=== PATIENT | female | born 1995 | race Caucasian/White ===

== ENCOUNTER 2018-05-26 20:00 | Inpatient (IN) | payer OTHER | END 2018-06-01 12:15 | disposition still patient (30) | LOC: ADULT MH 20:00 | DX: F33.2 Major depressive disorder, recurrent severe without psychotic features (principal) ==

== ENCOUNTER 2018-05-26 21:03 | Emergency (ER) | payer OTHER ==
[~2018-05-26] VITALS: Ht 160 cm; Wt 87.9 kg
[~2018-05-26 21:03] MED LIST: BAC10T PO; BIRTH CONTROL PO; BISA-77 PO; DULO-31 PO; OMEP20TA5 PO; TOP25T PO
--- NOTE | 2018-05-26 21:20 | NUR ---
CONTACTED TELEPSYCH TO INITIATE CONSULT
[2018-05-26 21:31] LABS: URINE HCG NEGATIVE (NEG)
[2018-05-26 21:42] LABS: URINE AMPHETAMINE SCREEN NEGATIVE (Neg); URINE BARBITUATE SCREEN NEGATIVE (Neg); URINE BENZODIAZEPINES SCREEN NEGATIVE (Neg); URINE CANNABINOID SCREEN NEGATIVE (Neg); URINE COCAINE SCREEN NEGATIVE (Neg); URINE METHADONE SCREEN NEGATIVE (Neg); URINE OPIATE SCREEN NEGATIVE (Neg); URINE PHENCYCLIDINE SCREEN NEGATIVE (Neg)
[2018-05-26 21:44] LABS: ALANINE AMINOTRANSFERASE 15 U/L (12-78); ALBUMIN 3.5 G/DL (3.4-5.0); ALBUMIN/GLOBULIN RATIO 0.8 (1.1-1.5); ALKALINE PHOSPHATASE 97 IU/L (46-116); ANION GAP 12 (8-16); ASPARTATE AMINO TRANSFERASE 15 U/L (10-37); BILIRUBIN,TOTAL 0.3 MG/DL (0.1-1.0); BLOOD UREA NITROGEN 18 MG/DL (7-18); BUN/CREATININE RATIO 19.4 (6.6-38.0); CALCIUM 8.7 MG/DL (8.5-10.1); CHLORIDE 104 MMOL/L (99-107); CREATININE 0.93 MG/DL (0.40-0.90); GLUCOSE 98 MG/DL (70-104); SODIUM 138 MMOL/L (135-145); TOTAL CARBON DIOXIDE 22.5 MMOL/L (24-32); TOTAL PROTEIN 7.7 G/DL (6.4-8.2); eGFR 75 ML/MIN
[2018-05-26 21:52] LABS: POTASSIUM 3.7 MMOL/L (3.5-5.1)
[2018-05-26 21:53] LABS: ETHANOL < 0.010 GM/DL (0.0-0.010)
--- NOTE | 2018-05-26 22:00 | NUR ---
Pt affirms increased S/I with plan to "OD on meds or drive fast into something." Flat affect and mood. Pt reports doubling of SSRI in past 2 weeks and miscarrage ~ 5 days ago. Pt stated, "I was having a hard time coping so I came here from [place]." Pt reports a hx of self mutilation (cutting), but nothing in the past 6 yrs and also a previous OD attempt. Mother & friend bedside.
[2018-05-26 22:22] LABS: BASOPHILS % (AUTO) 0.3 % (0-1); EOSINOPHILS # (AUTO) 0.1 X10'3 (0-0.9); HEMATOCRIT 40.5 % (35.0-45.0); LYMPHOCYTES % (AUTO) 28.4 % (21-51); MEAN CORPUSCULAR HEMOGLOBIN 27.7 PG (27.0-31.0); MEAN CORPUSCULAR HGB CONC 34.5 % (33.0-36.5); MEAN CORPUSCULAR VOLUME 80.2 FL (78-98); MEAN PLATELET VOLUME 9.3 FL (7.4-10.4); MONOCYTES # (AUTO) 0.8 X10'3 (0-0.9); MONOCYTES % (AUTO) 7.6 % (2-12); NEUTROPHILS # (AUTO) 6.5 X10'3 (1.8-7.7); NEUTROPHILS % (AUTO) 62.7 % (42-75); PLATELET COUNT 271 X10'3 (140-440); RED BLOOD COUNT 5.05 X10'6 (4.20-5.60); RED CELL DISTRIBUTION WIDTH 14.1 % (11.5-14.5); WHITE BLOOD COUNT 10.4 X10'3 (4.5-11.0)
[2018-05-26] MEDS ORDERED: LORazepam 0.5 MG tablet PO PRN (22:45)
[2018-05-26 23:16] VITALS: BP 126/65
--- NOTE | 2018-05-27 00:37 | NUR ---
Pt status provided [place], [facility] [place] preparation of psychosocial assessment.
--- NOTE | 2018-05-27 01:04 | NUR ---
[facility] Psychiatrist called back w/ status: recommending PHF placementl w/ no change in psychotropics
--- NOTE | 2018-05-27 01:10 | NUR ---
Spoke with [facility] CROusmane Damon; bed has been held for pt, pending telepsych psychosocial assessment results, which involve PHF placement and medical clearance. Updated EDMD Ari with details.
--- NOTE | 2018-05-27 01:25 | NUR ---
Client to be admitted to [facility] [address] for [address] Tejeda.
[2018-05-27] MEDS ORDERED: multivitamins, therapeutics tablet PO ONE (15:25)
[2018-05-27] MEDS ORDERED: hydrOXYzine 25 MG tablet PO PRN (15:25)
[2018-05-27] MEDS ORDERED: duloxetine 30mg CAPSULE.DR PO ONE (15:25)
[2018-05-27] MEDS ORDERED: traZODone 50mg tablet PO SCH (20:00)
[2018-05-27] MEDS ORDERED: Melatonin 3mg tablet PO SCH (21:00)
[2018-05-28] MEDS ORDERED: duloxetine 30mg CAPSULE.DR PO SCH ×2 (08:00→21:00)
[2018-05-28] MEDS ORDERED: multivitamins, therapeutics tablet PO SCH (08:00)
== END 2018-05-27 02:56 ==
LOC: EEVIPCON 21:03 → ER 21:03
DX: R45.851 Suicidal ideations (principal); G47.00 Insomnia, unspecified; R10.9 Unspecified abdominal pain; F32.9 Major depressive disorder, single episode, unspecified; F41.9 Anxiety disorder, unspecified; Z88.1 Allergy status to other antibiotic agents; Z88.8 Allergy status to other drugs, medicaments and biological substances; Z79.899 Other long term (current) drug therapy
CPT/HCPCS: 36415; 80053; 80305; 80320; 81025; 84443; 85025; 99285

== ENCOUNTER 2020-10-29 15:15 | Emergency (ER) | payer OTHER ==
[~2020-10-29] VITALS: Ht 160 cm; Wt 118.2 kg
[~2020-10-29 15:15] MED LIST changes: -BAC10T PO; -BIRTH CONTROL PO; -BISA-77 PO; -DULO-31 PO; +DULO30CA52 PO; +HYDR-3686 PO; -OMEP20TA5 PO; -TOP25T PO; +TRAZ-256 PO
[2020-10-29 16:34] VITALS: BP 183/80
--- NOTE | 2020-10-29 18:05 | NUR ---
Patient seen, assessed and discharge by provider, vi WOMACK
== END 2020-10-29 18:10 | disposition home or self-care (01) ==
LOC: ER 15:15
DX: S06.0X0A Concussion without loss of consciousness, initial encounter (principal); M25.532 Pain in left wrist; Z87.440 Personal history of urinary (tract) infections; Z98.890 Other specified postprocedural states; Z88.1 Allergy status to other antibiotic agents; Z88.8 Allergy status to other drugs, medicaments and biological substances; Z79.899 Other long term (current) drug therapy; W01.0XXA Fall on same level from slipping, tripping and stumbling without subsequent striking against object, initial encounter; Y93.89 Activity, other specified; Y92.89 Other specified places as the place of occurrence of the external cause; Y99.8 Other external cause status
CPT/HCPCS: 73110; 99283

== ENCOUNTER 2021-09-19 19:01 | Emergency (ER) | payer OTHER ==
[~2021-09-19] VITALS: Ht 160 cm; Wt 127.3 kg
[2021-09-19] MEDS ORDERED: dexamethasone sod phosphate 10mg/ml inj IV STA (19:09)
[2021-09-19] MEDS ORDERED: normal saline 1000ml 1,000 ML IV ONE (19:10)
[2021-09-19] MEDS ORDERED: ketorolac tromethamine 15mg/ml inj. IV ONE (19:10)
[2021-09-19 20:04] LABS: MONOTEST NEGATIVE (Neg)
[2021-09-19 20:18] VITALS: BP 132/68
[2021-09-19] MEDS ORDERED: PRED20TA PO ×2 (20:50→20:51)
== END 2021-09-19 21:09 | disposition home or self-care (01) ==
LOC: ER 19:02
DX: J02.9 Acute pharyngitis, unspecified (principal); R59.0 Localized enlarged lymph nodes; Z87.440 Personal history of urinary (tract) infections; Z88.1 Allergy status to other antibiotic agents; Z88.8 Allergy status to other drugs, medicaments and biological substances; Z91.048 Other nonmedicinal substance allergy status; Z79.899 Other long term (current) drug therapy
CPT/HCPCS: 36415; 86308; 87081; 87880; 96361; 96374; 96375; 99284; J1100; J1885; J7030

== ENCOUNTER 2021-12-05 18:15 | Emergency (ER) | payer BC, OTHER ==
[~2021-12-05] VITALS: Ht 160 cm; Wt 127.3 kg
[2021-12-05] MEDS ORDERED: ibuprofen tablet 400 MG TABLET PO ONE (19:15)
[2021-12-05] MEDS ORDERED: cyclobenzaprine 10mg tablet PO ONE (19:15)
[2021-12-05] MEDS ORDERED: acetaminophen 325mg tablet PO ONE (19:15)
[2021-12-05 20:00] VITALS: BP 133/88
[2021-12-05] MEDS ORDERED: CYCL-394 PO (20:08)
== END 2021-12-05 20:22 | disposition home or self-care (01) ==
LOC: ER 18:15
DX: S13.4XXA Sprain of ligaments of cervical spine, initial encounter (principal); M54.9 Dorsalgia, unspecified; F32.A Depression, unspecified; Z87.448 Personal history of other diseases of urinary system; Z88.1 Allergy status to other antibiotic agents; Z79.899 Other long term (current) drug therapy; Z88.8 Allergy status to other drugs, medicaments and biological substances; V98.8XXA Other specified transport accidents, initial encounter; Y93.89 Activity, other specified; Y92.89 Other specified places as the place of occurrence of the external cause; Y99.8 Other external cause status
CPT/HCPCS: 99284

== ENCOUNTER 2022-03-11 04:32 | Emergency (ER) | payer MEDICAID, OTHER ==
[~2022-03-11] VITALS: Ht 160 cm; Wt 127.3 kg
[2022-03-11] MEDS ORDERED: normal saline 1000ml 1,000 ML IV ONE (04:55)
[2022-03-11] MEDS ORDERED: ketorolac trometh. 30mg/ml inj. IV ONE (04:55)
[2022-03-11] MEDS ORDERED: valacyclovir 500mg tablet PO ONE (05:25)
[2022-03-11] MEDS ORDERED: predniSONE 20 mg tablet PO ONE (05:25)
[2022-03-11 05:41] LABS: BASOPHILS # (AUTO) 0.1 X10'3 (0-0.2); BASOPHILS % (AUTO) 0.9 % (0-1); EOSINOPHILS # (AUTO) 0.1 X10'3 (0-0.9); EOSINOPHILS % (AUTO) 1.7 % (0-6); HEMOGLOBIN 11.8 g/dl (12.0-16.0); LYMPHOCYTES # (AUTO) 2.9 X10'3 (1.1-4.8); LYMPHOCYTES % (AUTO) 36.6 % (21-51); MEAN CORPUSCULAR HEMOGLOBIN 23.6 PG (27.0-31.0); MEAN CORPUSCULAR HGB CONC 32.7 g/dL (33.0-36.5); MEAN CORPUSCULAR VOLUME 72.2 FL (78-98); MEAN PLATELET VOLUME 8.4 FL (7.4-10.4); MONOCYTES # (AUTO) 0.9 X10'3 (0-0.9); MONOCYTES % (AUTO) 11.2 % (2-12); NEUTROPHILS # (AUTO) 3.9 X10'3 (1.8-7.7); NEUTROPHILS % (AUTO) 49.6 % (42-75); PLATELET COUNT 350 X10'3 (140-440); RED BLOOD COUNT 4.98 X10'6 (4.20-5.60); RED CELL DISTRIBUTION WIDTH 15.3 % (11.5-14.5); WHITE BLOOD COUNT 7.8 X10'3 (4.5-11.0)
[2022-03-11] MEDS ORDERED: VALA100031 PO (05:43)
[2022-03-11] MEDS ORDERED: PRED50TA PO (05:43)
[2022-03-11 05:57] LABS: ALANINE AMINOTRANSFERASE 19 U/L (12-78); ALBUMIN/GLOBULIN RATIO 0.6 (1.1-1.5); ALKALINE PHOSPHATASE 87 IU/L (46-116); ANION GAP 11 (8-16); ASPARTATE AMINO TRANSFERASE 17 U/L (10-37); BILIRUBIN,TOTAL 0.4 MG/DL (0.1-1.0); BLOOD UREA NITROGEN 9 MG/DL (7-18); BUN/CREATININE RATIO 11.3 (6.6-38.0); CALCIUM 8.7 MG/DL (8.5-10.1); CHLORIDE 103 MMOL/L (99-107); GLUCOSE 98 MG/DL (70-104); MAGNESIUM 2.1 MG/DL (1.5-2.4); POTASSIUM 3.5 MMOL/L (3.5-5.1); SODIUM 138 MMOL/L (135-145); TOTAL PROTEIN 7.9 G/DL (6.4-8.2); eGFR 87 ML/MIN
[2022-03-11 06:09] LABS: URINE HCG NEGATIVE (NEG)
[2022-03-11 06:22] LABS: CLARITY,URINE CLEAR (Clear); COLOR,URINE YELLOW (Yellow); GLUCOSE, URINE NEGATIVE (Neg); KETONES,URINE NEGATIVE (Neg); LEUKOCYTE ESTERASE ,URINE NEGATIVE (Neg); NITRITES, URINE NEGATIVE (Neg); OCCULT BLOOD,URINE NEGATIVE (Neg); PROTEIN,URINE NEGATIVE (Neg); UROBILINOGEN,URINE 0.2 E.U/dL (0.2-1.0)
[2022-03-11 06:23] LABS: UA COLLECTION TYPE CLN CATCH MIDSTREAM
[2022-03-11 10:13] VITALS: BP 142/74
== END 2022-03-11 11:26 | disposition home or self-care (01) ==
LOC: ER 04:34
DX: G51.0 Bell's palsy (principal); Z20.822 Contact with and (suspected) exposure to COVID-19; B34.9 Viral infection, unspecified; F32.A Depression, unspecified; Z79.899 Other long term (current) drug therapy; Z91.048 Other nonmedicinal substance allergy status; Z88.1 Allergy status to other antibiotic agents
CPT/HCPCS: 36415; 71045; 80053; 81003; 81025; 83605; 83735; 84145; 85025; 87040; 87502; 87503; 87811; 93005; 96361; 96374; 99285; J1885; J7030; J7512

== ENCOUNTER 2023-05-02 15:47 | Emergency (ER) | payer BC, MEDICAID ==
[~2023-05-02] VITALS: Ht 160 cm; Wt 122.7 kg
[~2023-05-02 15:47] MED LIST changes: +PRED50TA PO; +VALA100031 PO
[2023-05-02 15:54] VITALS: BP 165/86; PULSE 85; RESP 18; TEMP 98; O2SAT 100
== END 2023-05-02 16:40 | disposition home or self-care (01) ==
LOC: ER 15:48
DX: S80.01XA Contusion of right knee, initial encounter (principal); Z87.440 Personal history of urinary (tract) infections; Z88.1 Allergy status to other antibiotic agents; Z91.048 Other nonmedicinal substance allergy status; Z88.8 Allergy status to other drugs, medicaments and biological substances; Z79.899 Other long term (current) drug therapy; Z79.2 Long term (current) use of antibiotics; W01.0XXA Fall on same level from slipping, tripping and stumbling without subsequent striking against object, initial encounter; Z91.81 History of falling; Y93.89 Activity, other specified; Y92.89 Other specified places as the place of occurrence of the external cause; Y99.8 Other external cause status
CPT/HCPCS: 73564; 99284; A6449

== ENCOUNTER 2024-09-19 10:05 | Emergency (ER) | payer BC ==
[~2024-09-19] VITALS: Ht 160 cm; Wt 126.0 kg
[2024-09-19 10:36] LABS: BASOPHILS % (AUTO) 0.5 % (0-1); EOSINOPHILS # (AUTO) 0.2 X10'3 (0-0.9); HEMOGLOBIN 13.4 g/dl (12.0-16.0); LYMPHOCYTES # (AUTO) 2.1 X10'3 (1.1-4.8); LYMPHOCYTES % (AUTO) 27.1 % (21-51); MEAN CORPUSCULAR HEMOGLOBIN 24.9 PG (27.0-31.0); MEAN CORPUSCULAR HGB CONC 32.7 g/dL (33.0-36.5); MEAN CORPUSCULAR VOLUME 76.3 FL (78-98); MEAN PLATELET VOLUME 8.4 FL (7.4-10.4); MONOCYTES # (AUTO) 0.4 X10'3 (0-0.9); MONOCYTES % (AUTO) 5.8 % (2-12); NEUTROPHILS # (AUTO) 4.9 X10'3 (1.8-7.7); NEUTROPHILS % (AUTO) 64.6 % (42-75); PLATELET COUNT 323 X10'3 (140-440); RED BLOOD COUNT 5.38 X10'6 (4.20-5.60); RED CELL DISTRIBUTION WIDTH 15.3 % (11.5-14.5); WHITE BLOOD COUNT 7.7 X10'3 (4.5-11.0)
[2024-09-19 10:51] LABS: ALANINE AMINOTRANSFERASE 36 U/L (12-78); ALBUMIN 3.4 G/DL (3.4-5.0); ALKALINE PHOSPHATASE 99 IU/L (46-116); ANION GAP 6 (8-16); ASPARTATE AMINO TRANSFERASE 24 U/L (10-37); BILIRUBIN,TOTAL 0.5 MG/DL (0.1-1.0); BLOOD UREA NITROGEN 14 MG/DL (7-18); BUN/CREATININE RATIO 15.9 (10.0-20.0); CALCIUM 8.6 MG/DL (8.5-10.1); CHLORIDE 107 MMOL/L (99-107); CREATININE 0.88 MG/DL (0.40-0.90); GLUCOSE 93 MG/DL (70-104); LIPASE 22 U/L (16-77); POTASSIUM 4.1 MMOL/L (3.5-5.1); SODIUM 140 MMOL/L (135-145); TOTAL CARBON DIOXIDE 27.2 MMOL/L (24-32); eCRCL 79 ML/MIN; eGFR 77 ML/MIN
[2024-09-19 11:03] LABS: TOTAL PROTEIN 6.9 G/DL (6.4-8.2)
[2024-09-19 11:26] LABS: BILIRUBIN,URINE NEGATIVE (Neg); CLARITY,URINE CLEAR (Clear); COLOR,URINE YELLOW (Yellow); GLUCOSE, URINE NEGATIVE (Neg); KETONES,URINE TRACE mg/dl (Neg); LEUKOCYTE ESTERASE ,URINE NEGATIVE (Neg); OCCULT BLOOD,URINE NEGATIVE (Neg); PROTEIN,URINE TRACE mg/dl (Neg); URINE HCG NEGATIVE (NEG)
[2024-09-19 11:29] LABS: NITRITES, URINE NEGATIVE (Neg); UA COLLECTION TYPE VOIDED
[2024-09-19 11:35] LABS: SQUAMOUS EPITHELIAL CELL,UR MODERATE /LPF (FEW)
[2024-09-19 11:36] LABS: MUCUS STRANDS MODERATE /LPF (Neg)
[2024-09-19 11:37] LABS: BACTERIA,URINE 3+ /HPF (Neg); RBC,URINE NONE SEEN /HPF (0-2); WBC,URINE 0-4 /HPF (0-4)
--- NOTE | 2024-09-19 13:50 | Physician Documentation ---
History of Present Illness ~ Chief Complaint: Vomiting Stated Complaint: ABD PAIN X5 DAYS Time Seen by MD: 13:22 Primary Medical Doctor: DR. NEELIMA GOMEZ Mode of Arrival: Ambulatory HPI Patient is seen today with complaints of five days of nausea and vomiting a loose stool. Patient states she has not been able to keep down sufficient liquid and has not eaten much over the last four days. Patient denies any chest pain or shortness of breath or abdominal pain. Patient was seen at urgent care and told to come to the ER today. Patient has no other concern or complaint at this time. Patient does admit to subjective fevers and chills and body aches over the last few days but does not currently feel feverish. Patient denies any recurrent nausea or vomiting over the last few months or years and states she does only smoke a little bit of marijuana periodically. Medication Reconciliation Allergies: Coded Allergies: Soap (Verified Allergy, Unknown, 05/02/23) ofloxacin (Verified Allergy, Unknown, HIVES, 05/02/23) povidone-iodine (Verified Allergy, Unknown, RASH, 05/02/23) Scheduled Duloxetine HCl (Duloxetine HCl), 30 MG PO DAILY@1400 Duloxetine HCl (Duloxetine HCl), 60 MG PO QAM Prednisone (Prednisone), 1 TAB PO DAILY Valacyclovir HCl (Valacyclovir), 1 TAB PO Q8H Scheduled PRN Hydroxyzine Hcl* (Atarax*), 25 MG PO TID PRN for anxiety Trazodone HCl (Trazodone HCl), 1 TAB PO HS PRN for insomnia Past Medical History Past Medical History: Constipation, UTI, Depression Past Surgical History: other Other Past Surgical History: Ear sx Alcohol Use: None Drug Use: none Lives with: Family Lives In: Home Occupation: employed Review of Systems Constitutional: Denies: chills, fever, weakness Eyes: Denies: pain, blurred vision ENT: Denies: ear pain, nose pain, throat pain, mouth pain Respiratory: Denies: cough, shortness of breath Cardiovascular: Denies: chest pain, palpitations Gastrointestinal: Denies: abdominal pain, nausea, vomiting Genitourinary: Denies: burning, dysuria Female Genitalia: Denies: vaginal discharge, pelvic pain Neurological: Denies: headache, dizziness Musculoskeletal: Denies: pain, swelling Integumentary: Denies: rash, lesions Allergic/Immunologic: Denies: hives, itching Hematologic/Lymphatic: Denies: no symptoms reported Psychiatric: Denies: depression, anxiety Physical Exam Vital Signs: Temperature: 98.1, Heart Rate: 65, Respiratory Rate: 14, BP: 125/64, Pulse Oximetry: 97, Weight: 126.000 Oxygen Flow Rate: 0 Physical Exam General: Awake and Alert, no acute distress. HEENT: Conjunctiva pink, Sclera clear, Mucus Membranes moist. Neck: Supple without masses and tenderness. Resp: Unlabored. Lungs clear to auscultation bilaterally. Heart: Regular Rate and rhythm, normal S1 and S2 without murmur, rub or gallop. Abdomen: Soft and non tender no organomegaly Extremities: No cyanosis,clubbing or edema. Skin: Warm and Dry. Progress Results/Orders Results/Orders Orders - ISSA SALTER PAC Normal Saline 1000ml (Sodium Chloride 10 (09/19/24 13:47) Completed Orders - ISSA SALTER PAC Prochlorperazine Inj (Compazine Inj) (09/19/24 13:47) Medications Received in ER Medications (Trade) Dose Ordered Sig/Marco Antonio Route PRN Reason Start Time Stop Time Status Last Admin Dose Admin Sodium Chloride 1,000 ml @ 1,000 mls/hr ONCE STAT IV 09/19/24 13:47 09/19/24 14:46 09/19/24 14:01 1,000 MLS/HR (Compazine inj) 10 mg ONCE STAT IV 09/19/24 13:47 09/19/24 13:57 DC 09/19/24 14:01 10 MG Vital Signs 09/19/24 09/19/24 09/19/24 09/19/24 10:08 11:26 11:28 14:07 Temp 98.1 98.1 98.1 Pulse 80 65 64 Resp 18 14 16 B/P (MAP) 161/72 125/64 (84) 104/56 (72) Pulse Ox 97 97 98 O2 Flow Rate 0 0 0 Laboratory Tests Test 09/19/24 10:27 09/19/24 10:59 White Blood Count 7.7 Red Blood Count 5.38 Hemoglobin 13.4 Hematocrit 41.0 Mean Corpuscular Volume 76.3 L Mean Corpuscular Hemoglobin 24.9 L Mean Corpuscular Hemoglobin Concent 32.7 L Red Cell Distribution Width 15.3 H Platelet Count 323 Mean Platelet Volume 8.4 Neutrophils (%) (Auto) 64.6 Lymphocytes (%) (Auto) 27.1 Monocytes (%) (Auto) 5.8 Eosinophils (%) (Auto) 2.0 Basophils (%) (Auto) 0.5 Neutrophils # (Auto) 4.9 Lymphocytes # (Auto) 2.1 Monocytes # (Auto) 0.4 Eosinophils # (Auto) 0.2 Basophils # (Auto) 0.0 CBC Comment Sodium Level 140 Potassium Level 4.1 Chloride Level 107 Carbon Dioxide Level 27.2 Anion Gap 6 L Blood Urea Nitrogen 14 Creatinine 0.88 Estimated GFR/1.73 m2 77 BUN/Creatinine Ratio 15.9 Glucose Level 93 Calcium Level 8.6 Total Bilirubin 0.5 Aspartate Amino Transf (AST/SGOT) 24 Alanine Aminotransferase (ALT/SGPT) 36 Alkaline Phosphatase 99 Total Protein 6.9 Albumin 3.4 Globulin 3.5 Albumin/Globulin Ratio 1.0 L Lipase 22 Chemistry Comments Urine Specimen Description Voided Urine Color Yellow Urine Clarity Clear Urine pH 6.0 Urine Specific [place] >=1.030 Urine Protein Trace Urine Glucose (UA) Negative Urine Ketones Trace H Urine Occult Blood Negative Urine Nitrite Negative Urine Bilirubin Negative Urine Urobilinogen 1.0 Urine Leukocyte Esterase Negative Urine RBC None seen Urine WBC 0-4 Urine Squamous Epithelial Cells Moderate Urine Bacteria 3+ Urine Mucus Moderate Urine Culture Indicated Not ind Volume Urine Centrifuged 10 ml Urine HCG, Qualitative Negative Urine Comment Medical Decision Making Findings Patient is seen today with complaints of five days of nausea and vomiting a loose stool. Patient states she has not been able to keep down sufficient liquid and has not eaten much over the last four days. Patient denies any chest pain or shortness of breath or abdominal pain. Patient was seen at urgent care and told to come to the ER today. Patient has no other concern or complaint at this time. Patient does admit to subjective fevers and chills and body aches over the last few days but does not currently feel feverish. Patient denies any recurrent nausea or vomiting over the last few months or years and states she does only smoke a little bit of marijuana periodically. Patient was given normal saline IV, Compazine 10 mg IV in the ED today. Patient was feeling better afterwards. Patient will advance diet and activity level as tolerated. Patient and I use shared decision-making today. Patient will be discharged home and will return to ED with any worsening, concerning or changing symptoms. Prescription of nausea medication sent to patient's pharmacy. Departure Disposition: HOME / SELF CARE / HOMELESS Impression: Primary Impression: Viral gastroenteritis Condition: Improved Discharge Instructions: Nausea and Vomiting, Adult, Viral Gastroenteritis, Adult Additional Instructions: Patient was given normal saline IV, Compazine 10 mg IV in the ED today. Patient was feeling better afterwards. Patient will advance diet and activity level as tolerated. Patient and I use shared decision-making today. Patient will be discharged home and will return to ED with any worsening, concerning or changing symptoms. Prescription of nausea medication sent to patient's pharmacy. Referrals: NO PRIMARY CARE PROVIDER (PCP) Prescriptions ONDANSETRON ODT 4mg tablet (ONDANSETRON ODT) 4 Mg Tab.rapdis 8 MG PO BID for 7 Days, #28 TAB Prov: ISSA SALTER 09/19/24 Signature Scribe Signature: No scribe Attestation: No scribe ISSA SALTER September 19, 2024 13:49
[2024-09-19] MEDS: normal saline 1000ml 1,000 ML IV STA (14:01)
[2024-09-19] MEDS: proCHLORperazine 10 MG/2 ml inj IV STA (14:01)
[2024-09-19 14:07] VITALS: TEMP 98.1
[2024-09-19] MEDS ORDERED: ONDA-243 PO (14:27)
[2024-09-19 15:21] VITALS: BP 120/56; PULSE 71; RESP 15; O2SAT 98
== END 2024-09-19 15:10 | disposition home or self-care (01) ==
LOC: ER 10:06
DX: A08.4 Viral intestinal infection, unspecified (principal); F32.A Depression, unspecified; Z88.1 Allergy status to other antibiotic agents; Z88.9 Allergy status to unspecified drugs, medicaments and biological substances; Z79.899 Other long term (current) drug therapy
CPT/HCPCS: 36415; 80053; 81001; 81025; 83690; 85025; 96361; 96374; 99283; J0780; J7030

== ENCOUNTER 2024-09-27 07:22 | Emergency (ER) | payer BC ==
[~2024-09-27] VITALS: Ht 160 cm; Wt 126.8 kg
[~2024-09-27 07:22] MED LIST changes: +ONDA-243 PO
[2024-09-27 07:25] VITALS: BP 156/93; PULSE 98; RESP 16; TEMP 98; O2SAT 97
[2024-09-27] MEDS: LIDOcaine 1% 30ml preserv. free vial IJ STA (08:01)
--- NOTE | 2024-09-27 08:01 | RADIOLOGY REPORT ---
EXAM: DI FOOT, COMPLETE (3VW MIN) HISTORY: FOOT PAIN COMPARISON: WRIST, COMPLETE (3VW MIN) on DOS: 10/29/20 TECHNIQUE: Three views of the left foot were performed. FINDINGS: Acute fractures of the 3rd and 4th proximal phalanx. No dislocation. IMPRESSION: 1. Acute fractures of the 3rd and 4th proximal phalanx. No dislocation.
[2024-09-27] MEDS: ibuprofen tablet 400 MG TABLET PO ONE (08:09)
--- NOTE | 2024-09-27 09:05 | Physician Documentation ---
History of Present Illness ~ Chief Complaint: Foot pain Stated Complaint: FALL/L FOOT PAIN Time Seen by MD: 07:32 Primary Medical Doctor: DR. NEELIMA GOMEZ Source: patient, family HPI 21-year-old female presenting for left foot pain after she fell. Difficulty walking on it and swelling Tetanus witin 5 years: No Medication Reconciliation Allergies: Coded Allergies: Soap (Verified Allergy, Unknown, 05/02/23) ofloxacin (Verified Allergy, Unknown, HIVES, 05/02/23) povidone-iodine (Verified Allergy, Unknown, RASH, 05/02/23) Scheduled Duloxetine HCl (Duloxetine HCl), 30 MG PO DAILY@1400 Duloxetine HCl (Duloxetine HCl), 60 MG PO QAM ONDANSETRON ODT 4mg tablet (Ondansetron Odt), 8 MG PO BID Prednisone (Prednisone), 1 TAB PO DAILY Valacyclovir HCl (Valacyclovir), 1 TAB PO Q8H Scheduled PRN Hydroxyzine Hcl* (Atarax*), 25 MG PO TID PRN for anxiety Trazodone HCl (Trazodone HCl), 1 TAB PO HS PRN for insomnia Past Medical History Past Medical History: Constipation, UTI, Depression Past Surgical History: other Other Past Surgical History: Ear sx Alcohol Use: None Drug Use: none Lives with: Family Lives In: Home Occupation: employed Review of Systems All Other Systems at this time: Reviewed and Negative Neurological: Denies: headache Physical Exam Vital Signs: RN Vital Signs have been reviewed: Yes, Temperature: 98.0, Source: Temporal, Heart Rate: 98, Respiratory Rate: 16, BP: 156/93, Pulse Oximetry: 97, Weight: 126.800 Oxygen Flow Rate: 0 Physical Exam Well-appearing no distress resting comfortably in bed Left lower extremity: Painless hip elbow ankle range of motion no deformity. Swelling deformity 3rd and 4th phalanx Procedures Procedures Fracture reduction Side left Indication displaced 3rd and 4th proximal phalanx fracture Pain control Digital block 10 cc lidocaine with successful anesthesia Successfully reduced using traction counter traction Secured in place with wesly taping and postop shoe Reduction confirmed with postreduction x-ray Progress Results/Orders Results/Orders Orders - JOEY MARTINEZ MD Foot, Complete (3vw Min) (09/27/24 07:28) Foot, Complete (3vw Min) (09/27/24 ) Completed Orders - JOEY MARTINEZ MD Foot, Complete (3vw Min) (09/27/24 07:28) Lidocaine 1% 30ml Vial (Xylocaine 1% Via (09/27/24 08:01) Ibuprofen Tablet (Motrin Tablet) (09/27/24 08:05) Foot, Complete (3vw Min) (09/27/24 ) Medications Received in ER Medications (Trade) Dose Ordered Sig/Marco Antonio Route PRN Reason Start Time Stop Time Status Last Admin Dose Admin (Motrin tablet) 400 mg ONCE ONCE PO 09/27/24 08:05 09/27/24 08:06 DC 09/27/24 08:09 400 MG Vital Signs 09/27/24 07:25 Temp 98.0 Pulse 98 Resp 16 B/P (MAP) 156/93 Pulse Ox 97 O2 Flow Rate 0 EKG/XRAY/CT/US/VASC/MRI Bone/Soft Tissue X-Ray (Ext.) : Additional Comment X-ray independently interpreted by myself shows displaced fracture of the 3rd left proximal phalanx, minimally displaced fracture the base of the 4th left proximal phalanx Repeat x-ray independently interpreted by myself shows 3rd and 4th phalanx fractures in anatomical position Medical Decision Making General Diff Dx:Considerations: Include: Contusion, Fracture, Hematoma Departure Disposition: 01 HOME / SELF CARE / HOMELESS Impression: Primary Impression: Phalanx fracture, foot Qualified Codes: S92.522A - Displaced fracture of middle phalanx of left lesser toe(s), initial encounter for closed fracture Additional Instructions: Please keep the wesly tape in place for the next 5 days. Apply ice to the affected area and keep it elevated whenever possible. You may apply a compression dressing such as an Jin bandage to help with swelling. Try to avoid walking on it for the next week. After 1 week you may replace the wesly taping. It should be done exactly is I performed at by taping your middle toe to your 2nd and/or 1st toe. You should then tape the 4th toe to that same cluster. You may then going forward replace your tape as needed once it gets dirty but you should have tape in place for at least 4 weeks or as otherwise directed by your primary care physician. He is schedule an appointment for follow up to ensure proper healing Referrals: NO PRIMARY CARE PROVIDER (PCP) Signature Scribe Signature: na Attestation: JOEY Ochoa MD September 27, 2024 09:05
--- NOTE | 2024-09-27 09:52 | RADIOLOGY REPORT ---
EXAM: DI FOOT, COMPLETE (3VW MIN) HISTORY: s/p reduction COMPARISON: DI FOOT, COMPLETE (3VW MIN) on DOS: 09/27/24, WRIST, COMPLETE (3VW MIN) on DOS: 10/29/20 TECHNIQUE: Three views of the left foot were performed. FINDINGS: There is an acute fracture of the 3rd proximal phalanx and 4th proximal phalanx. No dislocation. Heel spur noted. Forefoot soft tissue swelling. IMPRESSION: 1. Acute fractures of the 3rd and 4th proximal phalanx. Soft tissue swelling in the forefoot.
== END 2024-09-27 10:20 | disposition home or self-care (01) ==
LOC: ER 07:23
DX: S92.522A Displaced fracture of middle phalanx of left lesser toe(s), initial encounter for closed fracture (principal); F32.A Depression, unspecified; Z88.1 Allergy status to other antibiotic agents; Z91.041 Radiographic dye allergy status; Z91.048 Other nonmedicinal substance allergy status; Z79.899 Other long term (current) drug therapy; W18.39XA Other fall on same level, initial encounter; Y93.89 Activity, other specified; Y92.89 Other specified places as the place of occurrence of the external cause; Y99.8 Other external cause status
CPT/HCPCS: 28515; 73630; 99284